=== PATIENT | male | born 1985 | race Caucasian/White ===

== ENCOUNTER 2018-11-07 17:00 | Emergency (ER) | payer MEDICAID ==
[~2018-11-07] VITALS: Ht 172.7 cm; Wt 95.5 kg
[2018-11-07 17:34] VITALS: BP 146/84
== END 2018-11-07 19:17 | disposition home or self-care (01) ==
LOC: ER 17:01
DX: M25.532 Pain in left wrist (principal)
CPT/HCPCS: 29125; 73130; 99283